=== PATIENT | male | born 2005 | race Caucasian/White ===

== ENCOUNTER 2024-08-21 15:50 | Emergency (ER) | payer OTHER, SELFPAY ==
[2024-08-21 15:52] VITALS: BP 151/109
[2024-08-21] MEDS: NSS 1000 IV (16:56)
[2024-08-21] MEDS: OMNIPAQUE 50 ML PO (16:56)
[2024-08-21] MEDS: ZOFRAN 4 MG IV (16:57)
[2024-08-21] MEDS: DILAUDID 0.5 MG IV (16:57)
[2024-08-21 17:05] VITALS: BMI 17.0
[2024-08-21 17:08] VITALS: BP 120/79
[2024-08-21 17:18] LABS: % Basophils 0.5 % (0-2); % Eosinophils 0.1 % (0-6); % Immature Granulocytes 0.4 % (0-0.5); % Lymphocytes 8.1 % (20.5-51.1); % Monocytes 10.8 % (1.7-9.3); % Neutrophils 80.1 % (42.2-75.2); Absolute Basophils 0.1 10^3/uL (0-0.2); Absolute Immature Granulocytes 0.1 10^3/uL (0-0.05); Absolute Lymphocytes 1.3 10^3/uL (1.2-3.4); Absolute Monocytes 1.7 10^3/uL (0.1-0.6); Absolute Neutrophils 12.7 10^3/uL (1.4-6.5); Hematocrit 43.4 % (39.0-52.0); Hemoglobin 14.6 g/dL (13.0-18.0); Mean Corp Hgb Conc. 33.6 g/dL (33.0-37.0); Mean Corpuscular Hgb 28.3 pg (27.0-31.0); Mean Corpuscular Volume 84.3 fL (80.0-94.0); Mean Platelet Volume 9.8 fL (7.4-10.4); Nucleated Red Blood Cells % 0 % (-); Platelet Count 668 10^3/uL (130-400); Red Blood Cell Count 5.15 10^6/uL (4.70-6.10); Red Cell Dist. Width 13.1 % (11.5-14.5); White Blood Cell Count 15.8 10^3/uL (4.8-10.8)
[2024-08-21 17:26] LABS: ALT (SGPT) 38 U/L (0-50); AST (SGOT) 35 U/L (17-59); Alkaline Phosphatase 121 U/L (38-126); Blood Urea Nitrogen 18 mg/dl (9-20); Calcium 10.4 mg/dl (8.4-10.2); Carbon Dioxide 22 mmol/L (22-30); Chloride 101 mmol/L (98-107); Estimated Creatinine Clearance 86 ml/min; Glucose 139 mg/dl (70-99); Potassium 4.5 mmol/L (3.5-5.1); Sodium 140 mmol/L (135-145); Total Bilirubin 1.8 mg/dl (0.2-1.3); Total Protein 8.2 g/dl (6.3-8.2); eGFR > 60.00
[2024-08-21 17:40] LABS: Erythrocyte Sed Rate 15 mm/hour (0-20)
--- NOTE | 2024-08-21 17:43 | ED.GENMED ---
History of Present Illness
General
Chief Complaint: Abdominal Symptoms
Time Seen by Provider: 08/21/24 16:36
History of Present Illness
History of Present Illness:
19-year-old male with history of Crohn's presents to the emergency department for evaluation of severe abdominal pain associated with nausea, vomiting, and diarrhea beginning in the middle of the night last night. He began on Humira earlier this
month. Follows with GI at the [facility]. Unable to tolerate p.o. food and fluids at home. Denies any fevers or sweats no history of abdominal surgeries
Past History
Past History
ED Past Medical History: Other (Ulcerative colitis)
ED Past Surgical History: Negative Bowel resection
Social History
Tobacco: Non-smoker
Alcohol: None
Drug: None
Personal: Single
Living: with family
Employment: Employed
Family History
Family History: Other (Noncontributory)
Review of Systems
Review of Systems
Allergies reviewed?: Yes
All Other Systems: ROS reviewed and negative except as documented in HPI and ROS
Phy Exam
Physical Exam
Physical Exam:
GEN: Well appearing, NAD, WDWN
HEENT: Oral mucosa moist, no scleral icterus
Cardiac: Tachycardic, regular
Lung: No respiratory distress, no tachypnea
Abdomen: Soft, markedly tender to all 4 quadrants
MSK: No gross deformity or injuries
Skin: Good color, no pallor or jaundice, no rashes
Neuro: AO x3, moves all extremities freely
Psych: Calm, cooperative
Course
Orders/Labs/Results
Orders:
Orders
08/21/24 16:46
0.9% Sodium Chloride 1000 ml [Nss] 1,000 ml IV BOLUS
HYDROmorphone [Dilaudid] 0.5 mg IV NOW STA
Iohexol [Omnipaque] See Protocol PO NOW STA
Ondansetron Injectable [Zofran] 4 mg IV NOW STA
08/21/24 16:55
CRP [C-Reactive Protein] Urgent
Complete Blood Count/With Diff Urgent
Comprehensive Metabolic Panel Urgent
ESR [Erythrocyte Sed Rate] Urgent
08/21/24 17:34
CT Abd/pel W Iv And Oral Contr Urgent
Comment:
Reason For Exam: abd pain, vomiting, diarrhea, hx of Crohns
Iohexol [Omnipaque] See Protocol PO NOW STA
08/21/24 19:23
Urinalysis Reflex To Culture Urgent
Date Specimen was Collected: 08/21/24
Time Specimen was Collected: 19:21
Comment: Clean Catch
08/21/24 19:52
Dicyclomine [Bentyl] 20 mg .ROUTE .STK-MED ONE
08/21/24 19:54
Dicyclomine [Bentyl] 10 mg PO NOW STA
Abnormal Lab Results
08/21/24 08/21/24
16:55 19:23
WBC 15.8 H 10^3/uL
(4.8-10.8)
Plt Count 668 H 10^3/uL
(130-400)
Abs Immat Gran (auto) 0.1 H 10^3/uL
(0-0.05)
Absolute Neuts (auto) 12.7 H 10^3/uL
(1.4-6.5)
Absolute Monos (auto) 1.7 H 10^3/uL
(0.1-0.6)
Neutrophils % 80.1 H %
(42.2-75.2)
Lymphocytes % 8.1 L %
(20.5-51.1)
Monocytes % 10.8 H %
(1.7-9.3)
Glucose 139 H mg/dl
(70-99)
Calcium 10.4 H mg/dl
(8.4-10.2)
Total Bilirubin 1.8 H mg/dl
(0.2-1.3)
C-Reactive Protein 25.20 H mg/L
(0.0-10.00)
Urine Ketones Trace A
(Negative)
Urine Bilirubin 1+ A
(Negative)
08/21/24 16:55
08/21/24 16:55
Vital Signs
Initial and Last Documented VS:
Initial Vital Signs
Temp Pulse Resp BP Pulse Ox
98.0 F 110 20 151/109 99
08/21/24 15:52 08/21/24 15:52 08/21/24 15:52 08/21/24 15:52 08/21/24 15:52
Last Documented Vital Signs
Temp Pulse Resp BP Pulse Ox
98.0 F 110 20 111/60 100
08/21/24 15:52 08/21/24 15:52 08/21/24 15:52 08/21/24 19:23 08/21/24 19:45
MDM/Problems Addressed
MDM/Problems Addressed:
Patient's imaging is negative for acute process., Discussed case with GI, we are in agreement this likely represents an acute self-limited viral syndrome and not an acute Crohn's flare. Stool cultures will be sent as an outpatient, outpatient GI
follow-up advised
*Critical Care Note
Total Time (30-74mins, 75-104mins- exclusive of procedures): Not Applicable
ED Attending Note
-
Portions of this chart may have been created with voice recognition software.� Occasional wrong word or��sound alike� substitutions may have occurred due to the inherent limitations of voice recognition software.
Discharge Plan
Departure
Patient Disposition: Home (Routine Discharge)
Date of Disposition: 08/21/24
Time of Disposition: 19:39
Patient with high blood pressure during this ER visit?: No
Discharge Problem:
Gastroenteritis
Instructions: Nausea and Vomiting, Adult (DC)
Prescriptions:
New
ondansetron 4 mg tablet,disintegrating
4 mg PO TIDPRN PRN (Reason: nausea/vomiting) Qty: 10 0RF
dicyclomine 10 mg capsule
10 - 20 mg PO TID PRN (Reason: abdominal pain) Qty: 20 0RF
No Action
Zeposia 0.92 mg Capsule
0.92 mg PO DAILY@1400
dicyclomine 10 mg Capsule
10 mg PO QIDPRN PRN (Reason: abdominal pain) Qty: 90 0RF
prednisone 10 mg tablet
10 mg PO DIRECTED Qty: 66 0RF
Rx Instructions:
Take 40mg daily for 1 week, then taper down by 5mg every week.
Referrals:
Robin Ogden MD [Family Provider] -
Activity Restrictions/Additional Instructions:
Follow-up with your GI doctor this week if symptoms do not improve
Interventions
Interventions:
*Risk Screen - Suicide Last Done: 08/21/24 15:52
*General Assessment Last Done: 08/21/24 17:05
*Neglect/Abuse Screening Last Done: 08/21/24 15:52
ED- Fall Risk Assessment Last Done: 08/21/24 16:12
*ED COVID-19 Vaccine History Last Done: 08/21/24 17:05
*Nursing Disposition Last Done: 08/21/24 20:00
RX-Idluza-Stbtwvbwxs Assessment Last Done: 08/21/24 17:07
Discharge Date and Time
Discharge Date/Time: 08/21/24 20:00
Print Language: SLOVAK
[2024-08-21 18:00] VITALS: BP 106/62
[2024-08-21 19:23] VITALS: BP 111/60
[2024-08-21 19:28] LABS: Urine Albumin Trace (Neg - Trace); Urine Bilirubin 1+ (Negative); Urine Character Clear (Clear); Urine Color Yellow; Urine Glucose Negative (Negative); Urine Ketone Trace (Negative); Urine Leukocyte Negative (Negative); Urine Nitrite Negative (Negative); Urine Occult Blood Negative (Negative); Urine Specific Gravity 1.015 (<1.030); Urine Urobilinogen Negative (Neg - 1+)
[2024-08-21] MEDS: BENTYL 10 MG PO (19:58)
== END 2024-08-21 20:00 | disposition home or self-care (01) ==
LOC: EMR 15:50
PROVIDERS: Physician Assistant; EMERGENCY PHYSICIAN Emergency Medicine; FAMILY PHYSICIAN Internal Medicine
DX: K52.9 Noninfective gastroenteritis and colitis, unspecified (principal); K50.90 Crohn's disease, unspecified, without complications; K51.90 Ulcerative colitis, unspecified, without complications; Z91.011 Allergy to milk products; Z91.018 Allergy to other foods
CPT/HCPCS: 99284; 96375; 96361; 96374; 74177; 80053; 81003; 85025; 85652; 86140; Q9967

== ENCOUNTER 2024-09-27 11:37 | Emergency (ER) | payer OTHER, SELFPAY ==
[2024-09-27 11:39] VITALS: BP 132/89
--- NOTE | 2024-09-27 11:48 | ED.GENMED ---
ED Provider Triage
<Reza Morgan Jr., PA-C - Last Filed: 09/27/24 11:49>
-
Patient seen by provider in Triage?: Seen in Triage
Attestation: A medical screening examination has been initiated by a qualified medical provider. Based on the assessment performed at this time, it has been determined that an emergent medical condition may exist and the patient has been informed
that further medical evaluation and possible additional diagnostic testing may be needed.
HPI: 19-year-old male past medical history of Crohn's currently taking Humira presenting to the emergency department today with concerns of headache mainly starting 4 days ago also noticed a swollen lymph node to his right posterior neck yesterday.
No specific photophobia phonophobia no numbness or weakness chest pain shortness of breath. No fevers or neck stiffness. Has had headaches in the past no official migraine diagnosis. Tried taking family members triptan without relief. Initial
labs and medications ordered for further treatment.
GENERAL: Alert , in no apparent distress
EYE: No visual abnormalities.
NECK: Trachea midline
ENT: No visible abnormalities.
LUNGS: No acute respiratory distress
NEUROLOGICAL: Alert and oriented
SKIN: Skin intact. No visible changes.
MUSCULOSKELETAL: Moving extremities normally
PSYCH: Normal and appropriate interaction.
This is a medical evaluation conducted in person to initiate diagnostic evaluation and provide initial therapeutics. Please see further documentation by the treating clinician.
History of Present Illness
<Reza Morgan Jr., PA-C - Last Filed: 09/27/24 11:49>
General
Chief Complaint: Headache
Time Seen by Provider: 09/27/24 12:00
<Agustín Longoria PA-C - Last Filed: 09/27/24 14:19>
General
Source: patient
History of Present Illness
History of Present Illness:
19-year-old male with past medical history of Crohn's disease, on Humira, migraine disorder presenting to the emergency department for evaluation of persistent migraine headache that has been ongoing the last 4 days without any relief despite home
medications and usual remedies that help. Headache is associated with some nausea, swollen glands along the jaw and postauricular and fatigue. No reported fevers or infectious symptoms. Patient states the main concern is the headache which is why
he present to the ER today.
Past History
<Reza Morgan Jr., PA-C - Last Filed: 09/27/24 11:49>
Past History
ED Past Medical History: Other (Ulcerative colitis)
ED Past Surgical History: Negative Bowel resection
Social History
Tobacco: Non-smoker
Alcohol: None
Drug: None
Personal: Single
Living: with family
Employment: Employed
Family History
Family History: Other (Noncontributory)
<MARYANNE Gan Last Filed: 09/27/24 14:19>
Past History
ED Past Medical History: Other (Migraines)
Review of Systems
<MARYANNE Gan Last Filed: 09/27/24 14:19>
Review of Systems
All Other Systems: ROS reviewed and negative except as documented in HPI and ROS
Phy Exam
<MARYANNE Gan Last Filed: 09/27/24 14:19>
Physical Exam
Physical Exam:
GENERAL: Alert , in no apparent distress but does appear uncomfortable
EYE: conjunctiva clear
NECK: Supple, cervical chain lymphadenopathy
ENT: o/p clr, mmm.
CARDIAC: Regular rate and rhythm
LUNGS: Clear breath sounds bilaterally, no acute respiratory distress, no wheezes/rales/rhonchi
NEUROLOGICAL: Alert and oriented x 3, ambulatory with steady gait
SKIN: Warm and dry, skin intact.
MUSCULOSKELETAL: well perfused.
PSYCH: Normal and appropriate interaction.
Scores
<Agustín Longoria PA-C - Last Filed: 09/27/24 14:19>
Heart Failure Risk
Heart Failure Risk Score: Not Applicable
Heart Score for Chest Pain Patients
STEMI patient?: Not applicable
Withdrawal Assessment of Alcohol
Withdrawal Assessment Completed?: Not applicable
Course
<Reza Morgan Jr., PA-C - Last Filed: 09/27/24 11:49>
Orders/Labs/Results
Orders:
Orders
09/27/24 11:47
Diphenhydramine [Benadryl] 25 mg IV NOW STA
Ketorolac [Toradol] 15 mg IV NOW STA
Metoclopramide [Reglan] 10 mg IV NOW STA
09/27/24 11:48
0.9% Sodium Chloride 1000 ml [Nss] 1,000 ml IV BOLUS
09/27/24 11:51
COVID-19 Antigen Urgent
Source: Nasal Swab
Complete Blood Count/With Diff Urgent
Manual Differential Urgent
Monotest Urgent
INF RAPID [Influenza A+B Rapid Molecular] Urgent
JW Source: Nasal Swab
Specimen Description:
09/27/24 12:34
Comprehensive Metabolic Panel Urgent
Abnormal Lab Results
09/27/24 09/27/24
11:51 12:34
Plt Count 440 H 10^3/uL
(130-400)
Segmented Neutrophils 40 L %
(42-75)
Band Neutrophils 7 H %
(0-3)
Lymphocytes (Manual) 19 L %
(20-51)
Monocytes (Manual) 12 H %
(2-9)
BUN 5 L mg/dl
(9-20)
Glucose 100 H mg/dl
(70-99)
Monoscreen Positive A
(Negative)
09/27/24 11:51
09/27/24 12:34
Vital Signs
Initial and Last Documented VS:
Initial Vital Signs
Temp Pulse Resp BP Pulse Ox
97.5 F 87 16 132/89 98
09/27/24 11:39 09/27/24 11:39 09/27/24 11:39 09/27/24 11:39 09/27/24 11:39
Last Documented Vital Signs
Temp Pulse Resp BP Pulse Ox
97.5 F 87 16 132/89 98
09/27/24 11:39 09/27/24 11:39 09/27/24 11:39 09/27/24 11:39 09/27/24 11:39
<Agustín Longoria PA-C - Last Filed: 09/27/24 14:19>
Orders/Labs/Results
Orders:
Orders
09/27/24 11:47
Diphenhydramine [Benadryl] 25 mg IV NOW STA
Ketorolac [Toradol] 15 mg IV NOW STA
Metoclopramide [Reglan] 10 mg IV NOW STA
09/27/24 11:48
0.9% Sodium Chloride 1000 ml [Nss] 1,000 ml IV BOLUS
09/27/24 11:51
COVID-19 Antigen Urgent
Source: Nasal Swab
Complete Blood Count/With Diff Urgent
Manual Differential Urgent
Monotest Urgent
INF RAPID [Influenza A+B Rapid Molecular] Urgent
JW Source: Nasal Swab
Specimen Description:
09/27/24 12:34
Comprehensive Metabolic Panel Urgent
Abnormal Lab Results
09/27/24 09/27/24
11:51 12:34
Plt Count 440 H 10^3/uL
(130-400)
Segmented Neutrophils 40 L %
(42-75)
Band Neutrophils 7 H %
(0-3)
Lymphocytes (Manual) 19 L %
(20-51)
Monocytes (Manual) 12 H %
(2-9)
BUN 5 L mg/dl
(9-20)
Glucose 100 H mg/dl
(70-99)
Monoscreen Positive A
(Negative)
09/27/24 11:51
09/27/24 12:34
Vital Signs
Initial and Last Documented VS:
Initial Vital Signs
Temp Pulse Resp BP Pulse Ox
97.5 F 87 16 132/89 98
09/27/24 11:39 09/27/24 11:39 09/27/24 11:39 09/27/24 11:39 09/27/24 11:39
Last Documented Vital Signs
Temp Pulse Resp BP Pulse Ox
97.5 F 87 16 132/89 98
09/27/24 11:39 09/27/24 11:39 09/27/24 11:39 09/27/24 11:39 09/27/24 11:39
<Agustín Longoria PA-C - Last Filed: 09/27/24 14:19>
MDM/Problems Addressed
Differential Diagnosis Includes:
Intractable migraine, viral syndrome such as COVID/flu/mono, electrolyte derangement
MDM/Problems Addressed:
19-year-old male presenting to the ER for evaluation of persistent migraine type headache over the last 4 days, no relief with home medications. No fevers or infectious symptoms. Patient is on Humira for ulcerative colitis. Labs including
mono/COVID and flu ordered from triage. Migraine cocktail ordered. Reassessment following
Chronic conditions affecting care: Other (Crohn's disease on Humira)
<Agustín Longoria PA-C - Last Filed: 09/27/24 14:19>
*Pulse Oximetry
Patient hypoxic: no
*Critical Care Note
Total Time (30-74mins, 75-104mins- exclusive of procedures): Not Applicable
<Agustín Longoria PA-C - Last Filed: 09/27/24 14:19>
Comment
Comment:
Patient's monotest did come back positive. No leukocytosis however there is a mild bandemia noted. Patient sleeping following medications. Reassessment upon awakening.
Patient Management
Escalation/DeEscalation of care consider admission/obs:
Patient woke up noting that pain headache is now mostly resolved. He ultimately would like to be dispositioned home. I reviewed patient's mild bandemia with the patient as well as parents. They were provided with a printout of blood work. They
will follow-up with primary care provider. Patient also follows with GI at [place]. Aware of return precautions to the ER. Stable for discharge home.
ED Attending Note
<DANII Day Jr.C - Last Filed: 09/27/24 11:49>
-
Portions of this chart may have been created with voice recognition software.� Occasional wrong word or��sound alike� substitutions may have occurred due to the inherent limitations of voice recognition software.
Discharge Plan
Departure
Patient Disposition: Home (Routine Discharge)
Date of Disposition: 09/27/24
Time of Disposition: 14:10
Patient with high blood pressure during this ER visit?: No
Discharge Problem:
Mononucleosis, Headache
Instructions: Mononucleosis
Prescriptions:
No Action
Zeposia 0.92 mg Capsule
0.92 mg PO DAILY@1400
dicyclomine 10 mg Capsule
10 mg PO QIDPRN PRN (Reason: abdominal pain) Qty: 90 0RF
prednisone 10 mg tablet
10 mg PO DIRECTED Qty: 66 0RF
Rx Instructions:
Take 40mg daily for 1 week, then taper down by 5mg every week.
ondansetron 4 mg tablet,disintegrating
4 mg PO TIDPRN PRN (Reason: nausea/vomiting) Qty: 10 0RF
dicyclomine 10 mg capsule
10 - 20 mg PO TID PRN (Reason: abdominal pain) Qty: 20 0RF
Stand Alone Forms: Return to Work
Interventions
Interventions:
*Risk Screen - Suicide Last Done: 09/27/24 12:04
*General Assessment Last Done: 09/27/24 12:05
*Neglect/Abuse Screening Last Done: 09/27/24 12:04
*ED COVID-19 Vaccine History Last Done: 09/27/24 12:05
ED- Neurological Assessment Last Done: 09/27/24 12:04
Discharge Date and Time
Print Language: URDU
[2024-09-27] MEDS: TORADOL 15 MG IV (12:09)
[2024-09-27] MEDS: REGLAN 10 MG IV (12:09)
[2024-09-27] MEDS: BENADRYL 25 MG IV (12:09)
[2024-09-27] MEDS: NSS 1000 IV (12:10)
[2024-09-27 12:20] LABS: Hematocrit 42.5 % (39.0-52.0); Hemoglobin 14.4 g/dL (13.0-18.0); Mean Corp Hgb Conc. 33.9 g/dL (33.0-37.0); Mean Corpuscular Hgb 28.3 pg (27.0-31.0); Mean Corpuscular Volume 83.7 fL (80.0-94.0); Red Blood Cell Count 5.08 10^6/uL (4.70-6.10); Red Cell Dist. Width 13.6 % (11.5-14.5); White Blood Cell Count 10.1 10^3/uL (4.8-10.8)
[2024-09-27 12:26] LABS: COVID-19 Antigen Negative (Negative)
[2024-09-27 13:03] LABS: Monotest Positive (Negative)
[2024-09-27 13:13] LABS: ALT (SGPT) 29 U/L (0-50); AST (SGOT) 26 U/L (17-59); Alkaline Phosphatase 104 U/L (38-126); Blood Urea Nitrogen 5 mg/dl (9-20); Calcium 8.8 mg/dl (8.4-10.2); Carbon Dioxide 24 mmol/L (22-30); Chloride 103 mmol/L (98-107); Glucose 100 mg/dl (70-99); Potassium 4.1 mmol/L (3.5-5.1); Sodium 138 mmol/L (135-145); Total Bilirubin 0.4 mg/dl (0.2-1.3); Total Protein 6.8 g/dl (6.3-8.2); eGFR > 60.00
[2024-09-27 13:18] LABS: Platelet Count 440 10^3/uL (130-400)
[2024-09-27 13:21] LABS: Absolute Neutrophils -Man Diff 4.7 10^3/uL (1.4-6.5); Atypical Lymphocytes 20 %; Band Neutrophils 7 % (0-3); Lymphocytes 19 % (20-51); Monocytes 12 % (2-9); Myelocytes 2 % (-); Normal RBC Morphology Yes; Platelets Checked Yes; Segmented Neutrophils 40 % (42-75)
[2024-09-27 13:22] LABS: Total Cells Counted 100
[2024-09-27 14:18] VITALS: BP 114/96
== END 2024-09-27 14:19 | disposition home or self-care (01) ==
LOC: EMR 11:37
PROVIDERS: Student in an Organized Health Care Education/Training Program; EMERGENCY PHYSICIAN Emergency Medicine; FAMILY PHYSICIAN Internal Medicine
DX: R51.9 Headache, unspecified (principal); K50.90 Crohn's disease, unspecified, without complications
CPT/HCPCS: 99283; 96374; 96375; 96361; 80053; 85025; 86308; 87502; 87811